=== PATIENT | female | born 1995 | race African-American/Black ===

== ENCOUNTER 2022-08-22 17:59 | Emergency (ER) | payer MEDICAID ==
[~2022-08-22] VITALS: Ht 170.2 cm; Wt 63.0 kg
[2022-08-22 18:08] VITALS: BP 126/80
== END 2022-08-22 22:30 | disposition left against medical advice (07) ==
LOC: ER 17:59
DX: Z53.21 Procedure and treatment not carried out due to patient leaving prior to being seen by health care provider (principal)